=== PATIENT | male | born 1935 | race Caucasian/White ===

== ENCOUNTER 2017-05-21 09:14 | Emergency (ER) | payer MEDICARE, BC ==
[2017-05-21 11:04] VITALS: BP 150/78
[2017-05-21] MEDS ORDERED: HYDROmorphone 1 MG/ML Syringe IVPUSH ONE (11:09)
[2017-05-21] MEDS ORDERED: Ondansetron 4 MG/2 ML SDV IVPUSH ONE (11:09)
[2017-05-21 11:19] LABS: CHLORIDE,CL 110 mmol/L (98-107); SODIUM,NA 143 mmol/L (136-145)
--- NOTE | 2017-05-21 11:49 | EDM.PDOC ---
ED HPI GENERAL MEDICAL PROBLEM - General Chief Complaint: Lower Extremity Injury/Pain Stated Complaint: FALL Time Seen by Provider: 05/21/17 09:21 Source of Information: Reports: Patient - History of Present Illness INITIAL COMMENTS - FREE TEXT/NARRATIVE: Pt. fell, landing on his backside when he slipped on the ice. He denies striking his head. Denies any neck pain. Pt. states that his R hand was outstretched, and he fell on an outstretched R hand, injuring his R palm. Pt. was able to bear weight minimally in the R side. He denies any paresthesia to his upper or lower extremities. He states that he did not have any weakness, chest pain, or palpitations prior to the fall, and states he fell as a result of slipping on the ice. Location: Reports: Lower Extremity, Right Improves with: Reports: Rest Worsens with: Reports: Movement Right Hip Pain Score (Numeric/FACES): 2 - Related Data Allergies Allergy/AdvReac Type Severity Reaction Status Date / Time No Known Allergies Allergy Verified 05/21/17 09:41 Home Meds: Home Meds ALPRAZolam [Xanax] 0.25 mg PO BEDTIME PRN 05/25/15 [History] Aspirin [Halfprin] 81 mg PO DAILY 05/25/15 [History] Fluticasone Propionate [Flonase] 2 sprays NASBOTH DAILY 05/25/15 [History] Sodium Chloride [[place] Saline] 2 sprays NASBOTH ASDIRECTED 05/25/15 [History] Past Medical History HEENT History: Reports: Allergic Rhinitis, Sinusitis, Other (See Below) Other HEENT History: deviated septum, hypertrophy bilat inferior nasal turbinates Cardiovascular History: Reports: High Cholesterol Respiratory History: Reports: None Gastrointestinal History: Reports: Cholelithiasis, Diverticulosis, GERD Genitourinary History: Reports: Prostate Disorder Musculoskeletal History: Reports: None Neurological History: Reports: None Hematologic History: Reports: None Immunologic History: Reports: None Oncologic (Cancer) History: Reports: None Dermatologic History: Reports: None - Past Surgical History Head Surgeries/Procedures: Reports: None HEENT Surgical History: Reports: Naso-Sinus Surgery Respiratory Surgical History: Reports: None GI Surgical History: Reports: Cholecystectomy Neurological Surgical History: Reports: Laminectomy, Other (See Below) Musculoskeletal Surgical History: Reports: None Oncologic Surgical History: Reports: None Dermatological Surgical History: Reports: None Social & Family History - Tobacco Use Smoking Status *Q: Never Smoker Years of Tobacco use: 20 Used Tobacco, but Quit: Yes Second Hand Smoke Exposure: No - Alcohol Use Days Per Week of Alcohol Use: 7 Number of Drinks Per Day: 1 Total Drinks Per Week: 7 - Recreational Drug Use Recreational Drug Use: No Drug Use in Last 12 Months: No Review of Systems - Review of Systems Review Of Systems: See Below Constitutional: Reports: No Symptoms Eyes: Reports: No Symptoms Ears: Reports: No Symptoms Nose: Reports: No Symptoms Mouth/Throat: Reports: No Symptoms Respiratory: Reports: No Symptoms Cardiovascular: Reports: No Symptoms GI/Abdominal: Reports: No Symptoms Genitourinary: Reports: No Symptoms Musculoskeletal: Reports: Leg Pain (R hip pain) Skin: Reports: No Symptoms Neurological: Reports: No Symptoms Psychiatric: Reports: No Symptoms ED EXAM, GENERAL - Physical Exam Exam: See Below Exam Limited By: No Limitations General Appearance: Alert, WD/WN, No Apparent Distress Ears: Normal External Exam, Normal Canal, Hearing Grossly Normal, Normal TMs Nose: Normal Inspection, Normal Mucosa, No Blood Throat/Mouth: Normal Inspection, Normal Lips, Normal Teeth, Normal Gums, Normal Oropharynx, Normal Voice, No Airway Compromise Head: Atraumatic, Normocephalic Neck: Normal Inspection, Supple, Non-Tender, Full Range of Motion Respiratory/Chest: No Respiratory Distress, Lungs Clear, Normal Breath Sounds, No Accessory Muscle Use, Chest Non-Tender Cardiovascular: Normal Peripheral Pulses, Regular Rate, Rhythm, No Edema, No Gallop, No JVD, No Murmur, No Rub Peripheral Pulses: 4+: Radial (L), Radial (R) GI/Abdominal: Normal Bowel Sounds, Soft, Non-Tender, No Organomegaly, No Distention, No Abnormal Bruit, No Mass (Male) Exam: Deferred Rectal (Males) Exam: Deferred Back Exam: Normal Inspection, Full Range of Motion, NT Extremities: Normal Inspection, No Pedal Edema, Limited Range of Motion Neurological: Alert, Oriented, CN II-XII Intact, Normal Cognition, Normal Gait, Normal Reflexes, No Motor/Sensory Deficits Psychiatric: Normal Affect, Normal Mood Skin Exam: Warm, Dry, Intact, Normal Color, No Rash Lymphatic: No Adenopathy Course - Vital Signs Last Recorded V/S: Last Vital Signs Temp 35.7 C 05/21/17 09:15 Pulse 52 L 05/21/17 10:45 Resp 16 05/21/17 09:15 BP 150/78 H 05/21/17 10:45 Pulse Ox - Orders/Labs/Meds Orders: Active Orders 24 hr Category Date Time Status Hand Comp Min 3V Rt [CR] Stat Exams 05/21/17 09:19 Taken Hip Min 2V or 3V w Pelvis Rt [CR] Stat Exams 05/21/17 09:18 Taken Labs: Laboratory Tests 05/21/17 05/21/17 05/21/17 Range/Units 10:51 10:51 10:51 WBC 9.1 (4.0-10.0) x10^3/uL RBC 4.77 (4.5-6.0) x10^6/uL Hgb 14.9 (14.0-18.0) g/dL Hct 42.9 (40.0-52.0) % MCV 89.9 (78.0-93.0) fL MCH 31.2 (26.0-32.0) pg MCHC 34.7 (32.0-36.0) g/dL RDW Coeff of Raad 14.3 (10.0-15.0) % Plt Count 237 (130-400) x10^3/uL Neut % (Auto) 64.1 (50.0-80.0) % Lymph % (Auto) 18.0 L (25.0-50.0) % [place] % (Auto) 11.5 H (2.0-11.0) % Eos % (Auto) 5.7 H (0.0-4.0) % Baso % (Auto) 0.7 (0.2-1.2) % PT 10.0 (9.8-11.8) SEC INR 0.9 L (2.0-3.5) Sodium 143 (136-145) mmol/L Potassium 4.3 (3.5-5.1) mmol/L Chloride 110 H (98-107) mmol/L Carbon Dioxide 24 (21-32) mmol/L Anion Gap 13.3 BUN 16 (7-18) mg/dL Creatinine 1.1 (0.70-1.30) mg/dL Est Cr Clr Drug Dosing 54.87 mL/min Estimated GFR (MDRD) > 60 Glucose 90 (74-106) mg/dL Calcium 8.9 (8.5-10.1) mg/dL Corrected Calcium 9.38 (8.5-10.1) mg/dL Total Bilirubin 0.5 (0.2-1.0) mg/dL AST 30 (15-37) U/L ALT 35 (16-63) U/L Alkaline Phosphatase 72 (46-116) U/L Total Protein 6.9 (6.4-8.2) g/dL Albumin 3.4 (3.4-5.0) g/dL Globulin 3.5 Albumin/Globulin Ratio 0.97 Meds: Medications Discontinued Medications Generic Name Dose Route Start Last Admin Trade Name Freq PRN Reason Stop Dose Admin Hydromorphone HCl 1 mg 05/21/17 11:09 05/21/17 11:15 Dilaudid IVPUSH 05/21/17 11:10 1 mg ONETIME ONE Administration Ondansetron HCl 4 mg 05/21/17 11:09 05/21/17 11:14 Zofran IVPUSH 05/21/17 11:10 4 mg ONETIME ONE Administration - Radiology Interpretation Free Text/Narrative:: Pelvis/R hip radiographs reveal R femoral neck fracture. R hand x-ray in negative Departure - Departure Time of Disposition: 11:53 Disposition: DC/Tfer to [facility] 02 Clinical Impression: Fracture of neck of femur, hip - Discharge Information Referrals: Jameson Cotto MD [Primary Care Provider] - Forms: ED Department Discharge, Interfacility Transfer EMTALA - My Orders Last 24 Hours: My Active Orders 05/21/17 09:18 Hip Min 2V or 3V w Pelvis Rt [CR] Stat 05/21/17 09:19 Hand Comp Min 3V Rt [CR] Stat - Assessment/Plan Last 24 Hours: My Active Orders 05/21/17 09:18 Hip Min 2V or 3V w Pelvis Rt [CR] Stat 05/21/17 09:19 Hand Comp Min 3V Rt [CR] Stat
== END 2017-05-21 12:05 | disposition short-term general hospital (02) ==
LOC: VM.ED 09:14
DX: S72.001A Fracture of unspecified part of neck of right femur, initial encounter for closed fracture (principal); Z79.899 Other long term (current) drug therapy; Z79.82 Long term (current) use of aspirin; W00.0XXA Fall on same level due to ice and snow, initial encounter
CPT/HCPCS: 36415; 73130; 73502; 80053; 85025; 85610; 96374; 96375; 99285; J1170; J2405

== ENCOUNTER 2017-05-25 10:07 | Inpatient (IN) | payer MEDICARE, BC ==
[2017-05-25] MEDS ORDERED: Loratadine 10 MG Tab PO PRN (13:11)
[2017-05-25] MEDS ORDERED: Sodium Chloride 0.65% Nasal Spray 45 ML Bottle NASBOTH PRN (13:11)
[2017-05-25] MEDS ORDERED: Bisacodyl 10 MG Supp RECTAL PRN (13:11)
[2017-05-25] MEDS ORDERED: Bisacodyl 5 MG Tab PO PRN (13:11)
[2017-05-25] MEDS: Acetaminophen 325 MG Tab PO PRN ×2 (14:16→23:31)
--- NOTE | 2017-05-26 02:03 | HP ---
HISTORY OF PRESENT ILLNESS: The patient is an 82-year-old admitted today for further therapies after a right hip fracture related to a mechanical fall repaired by Dr. Yang on 05/22/2017, with a right hip hemiarthroplasty. The patient states his pain is under pretty good control. He is having some problems with his bowels. He feels constipated, yet he is having about 3 loose stools watery per day. He otherwise has not had any chest pain. No trouble breathing. He did have some postop bradycardia. Heart rates were down to the 30s. He actually got some [place]. This was following his procedure. He remained in sinus tracie throughout his stay without further symptoms and was asymptomatic, so no further treatment recommended. He was weightbearing as tolerated. He has been on Lovenox for DVT prophylaxis. He had some postop ileus that improved with ambulation and a clear liquid diet. ALLERGIES: Include seasonal allergies, no medications. MEDICATIONS: 1. Dulcolax suppository 2 times a day as needed for constipation. 2. Lovenox 40 mg daily until June 24. 3. Hydrocodone 1 tablet every 4 hours as needed for pain. 4. Xanax 0.5 mg at bedtime as needed for anxiety. 5. Flonase. 6. Zyrtec. 7. Aspirin 81 mg daily. 8. [place] spray. Augmentin was prescribed back in February and March for sinusitis, and he has not been on any antihypertensives. 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 PAST SURGICAL HISTORY: The patient had a right hip surgery as listed above. He has also had endoscopy procedures, septoplasty with submucous resection back in 2012, cholecystectomy in 1975, back surgery in 2004, and cataract surgery. SOCIAL HISTORY: He is . He is a retired banker. He lives at home with his . He has 3 children. FAMILY HISTORY: Mother of ovarian cancer. She was 92. Father . He also was elderly at 93. Sister, who had colon cancer, at 63. REVIEW OF SYSTEMS: General: There have been no weight changes. HEENT: No sore throat. Cardiac: No chest pain. No palpitations. Respiratory: No cough. No shortness of breath. Abdomen: No current nausea, vomiting, or abdominal pain. Otherwise, see HPI. : He has had no dysuria or problems urinating. Musculoskeletal: He has had some hip discomfort with riding out here in the vehicle. Otherwise, his pain is under good control. Psychiatric: He is not confused or anxious. Otherwise, all systems reviewed and found to be negative unless otherwise stated. PHYSICAL EXAMINATION: Vital Signs: Weight 87.4 kg, temperature 98.3, pulse 54, blood pressure 145/79, respiratory rate 12, O2 of 96 on room air. General: He is in no acute distress. Heart: Regular rate and rhythm. S1, S2 without murmur. LUNGS: Sounds are clear to auscultation bilaterally without crackles or wheezes. Abdomen: Positive bowel sounds. Soft and nontender. Extremities: Warm and dry. No edema. Hip incision not examined today. Legs are nontender, nonswollen. Homans sign negative. Mental Status: Alert and orientated x3. ASSESSMENT AND PLAN: 1. Status post mechanical fall, slipping on the ice, breaking his right hip, status post right hip hemiarthroplasty early in the morning of 05/22, seems to be doing well postop. We will get him up and moving with therapies. 2. Deep venous thrombosis prophylaxis. We will continue Lovenox. 3. Ileus, seems to be resolving. The patient is tolerating diet currently. We will advance and adjust as needed. He is actually getting some spaghetti now. 4. Sinus bradycardia. If any symptoms of dizziness, we will get an EKG or place him on short-term telemetry. PLAN: The patient is a code level 1. He will have PT and OT on swing bed. We will order support stockings and do Lovenox for DVT prophylaxis. Anticipate discharge home when stable. Dr. Jameson Cotto to follow the patient. Staple removal around June 05. He may already be home by then. CBC again in 3 days due to Lovenox monitoring. MKA: 05/25/2017 16:41:43 MODL: 05/25/2017 23:19:02 /[id number]
[2017-05-26] MEDS ORDERED: Fluticasone Propionate Nasal Spray 16 GM Bottle NASBOTH SCH (08:00)
[2017-05-26] MEDS: Acetaminophen 325 MG Tab PO PRN (08:21)
[2017-05-26] MEDS: Aspirin 81 MG Tab.EC PO SCH (08:22)
[2017-05-26] MEDS: Enoxaparin 40 MG/0.4 ML Syringe SUBCUT SCH (08:22)
[2017-05-26] MEDS: Acetaminophen/HYDROcodone 325-5 MG Tab PO PRN ×2 (10:31→18:28)
[2017-05-26] MEDS: Fluticasone Propionate Nasal Spray 16 GM Bottle NASBOTH SCH ×2 (18:28→18:59)
[2017-05-26] MEDS: ALPRAZolam 0.25 MG Tab PO PRN (21:06)
[2017-05-27] MEDS: Acetaminophen 325 MG Tab PO PRN ×3 (02:05→18:56)
[2017-05-27] MEDS: Enoxaparin 40 MG/0.4 ML Syringe SUBCUT SCH (08:47)
[2017-05-27] MEDS: Aspirin 81 MG Tab.EC PO SCH (08:48)
[2017-05-27] MEDS: ALPRAZolam 0.25 MG Tab PO PRN (21:18)
[2017-05-27] MEDS: Fluticasone Propionate Nasal Spray 16 GM Bottle NASBOTH SCH (21:18)
[2017-05-27] MEDS: Acetaminophen/HYDROcodone 325-5 MG Tab PO PRN (21:19)
[2017-05-28] MEDS: Aspirin 81 MG Tab.EC PO SCH (07:38)
[2017-05-28] MEDS: Acetaminophen 325 MG Tab PO PRN (07:38)
[2017-05-28] MEDS: Enoxaparin 40 MG/0.4 ML Syringe SUBCUT SCH (07:40)
[2017-05-28] MEDS ORDERED: traZODone 50 MG Tab PO SCH (20:00)
[2017-05-28] MEDS: Fluticasone Propionate Nasal Spray 16 GM Bottle NASBOTH SCH (21:33)
[2017-05-29] MEDS: Aspirin 81 MG Tab.EC PO SCH (07:45)
[2017-05-29] MEDS: Enoxaparin 40 MG/0.4 ML Syringe SUBCUT SCH (07:46)
[2017-05-29] MEDS: Acetaminophen 325 MG Tab PO PRN (10:35)
[2017-05-29 11:03] VITALS: BP 117/64
--- NOTE | 2017-05-30 07:57 | DISCH ---
PRIMARY DISCHARGE DIAGNOSES: 1. Right hip fracture from a mechanical fall status post right hip hemiarthroplasty on 05/22. 2. DVT prophylaxis. He has been on Lovenox. 3. Resolved ileus postop. He has had no trouble passing his stools here. 4. Insomnia chronic. He did not do well with trazodone. He will resume his regular Xanax on discharge, which he has used infrequently over the years. 5. Sinus bradycardia. He had no further symptoms here. REASON FOR ADMISSION: On the date of admission, this 82-year-old man was transferred to [facility] bed for further cares after his acute stay in [place]. He was up. He was working with therapies. He had blood pressure that was slightly elevated at times to 157/92, but then on discharge, he was 148/80. He is not on any antihypertensive. He took very few medications at home. PHYSICAL EXAMINATION: Vital Signs: Otherwise, his other vitals; temp 98, pulse 54, blood pressure 16, O2 is 94. General: He is in no acute distress. Heart: Regular rate and rhythm. Lungs: Sounds are clear to auscultation bilaterally without crackles or wheezes. Extremities: Warm and dry. He had some 1+ edema over the right calf area and even into the right posterior thigh. He had no edema on the left leg. Homans testing was negative. His incision was clean, intact with annabella. No drainage. Mental Status: He is alert and orientated x3. DISCHARGE PLANS AND INSTRUCTIONS: The patient will follow up in the clinic with Dr. Jameson Cotto in 1 to 2 weeks. He will also follow up with Orthopedics. He will have the annabella removed on 06/05, possibly by Home Health. He may continue Xanax for sleep. He may use Tylenol for pain. We discussed this. No script for narcotics provided. He did have 15 prescribed through [place], but he did not believe he still had that script. He should ice the hip if pain and he may continue senna to help with having bowel movements. Addendum to Home Health: The patient was seen [id number] on 05/29/2017. He requires home health due to a new hip fracture that required surgery. He requires nursing for medication monitoring while he is getting Lovenox to assess for any bleeding and OT and PT to work with him for therapies including gait and dressing. He is unable to leave his home without the assist of another person due to his recent fracture needing his walker for mobility. I will periodically review this plan of care. MKA: 05/29/2017 09:26:15 MODL: 05/30/2017 07:51:09 /[id number]
== END 2017-05-29 15:30 | disposition home health service (06) | DRG 948 ==
LOC: VM.MS 12:43
PROVIDERS: ADMIT Internal Medicine; ATTEND Internal Medicine
DX: R53.1 Weakness (principal); S72.001D Fracture of unspecified part of neck of right femur, subsequent encounter for closed fracture with routine healing; W00.0XXD Fall on same level due to ice and snow, subsequent encounter; K59.00 Constipation, unspecified; J30.2 Other seasonal allergic rhinitis; K21.9 Gastro-esophageal reflux disease without esophagitis; N40.0 Benign prostatic hyperplasia without lower urinary tract symptoms; E78.2 Mixed hyperlipidemia; D3A.8 Other benign neuroendocrine tumors; K57.90 Diverticulosis of intestine, part unspecified, without perforation or abscess without bleeding; R00.1 Bradycardia, unspecified; F51.04 Psychophysiologic insomnia; Z90.09 Acquired absence of other part of head and neck
CPT/HCPCS: 36415; 82962; 85025; 97110-GP; 97116-GP; 97161-GP; 97165-GO; 97535-GO; A9270-GY; J1650

== ENCOUNTER 2018-07-04 16:21 | Emergency (ER) | payer MEDICARE, BC ==
--- NOTE | 2018-07-04 16:38 | EDM.PDOC ---
ED HPI GENERAL MEDICAL PROBLEM - General Chief Complaint: General Stated Complaint: POSSIBLY DEHYDRATED Time Seen by Provider: 07/04/18 16:25 Source of Information: Reports: Patient History Limitations: Reports: No Limitations - History of Present Illness INITIAL COMMENTS - FREE TEXT/NARRATIVE: Patient comes into the emergency department with concerns of fatigue and possibly dehydrated. Patient and his presented after talking to a neighbor they felt he could be dehydrated and wanted to have him evaluated. Patient recently underwent eye surgery approximately 2 days ago. He has been constant communication with the surgeon and has been following his recommendations. However the states that today he has been more tired and fatigued and has not had as greate of an appetite. The patient states that he was able to eat food without difficulty however it is just not been as much as he normally does. He does drink water on occasion. He is not an avid water drinker for he does not like drinking water. He has had beef bullion broth, orange juice, coffee, and water today alone. He has noted that he is been more tired and fatigued today however he did state last night prior to bed at 10:30 PM he took Tylenol PM and a Zyrtec. He normally does not take a daily Zyrtec for it makes him sleepy but last night his allergies were acting up and he ended up taking a full tablet most the time he only takes a half a tablet as needed. Bowel movements and urinating are within his normal limits. He denies any vomiting, chest pain, shortness of breath, dizziness, lightheadedness, vision changes, headache, or lower extremity edema. Patient denies any other injuries or illnesses. Onset: Sudden, Gradual Improves with: Reports: None Worsens with: Reports: None Associated Symptoms: Reports: Loss of Appetite, Malaise, Nausea/Vomiting - Related Data Allergies Allergy/AdvReac Type Severity Reaction Status Date / Time No Known Allergies Allergy Verified 07/04/18 16:31 Home Meds: Home Meds ALPRAZolam [Xanax] 0.125 mg PO BEDTIME PRN 05/25/15 [History] Aspirin [Halfprin] 81 mg PO DAILY 05/25/15 [History] Fluticasone Propionate [Flonase] 2 sprays NASBOTH DAILY 05/25/15 [History] Sodium Chloride [[place] Saline] 2 sprays NASBOTH ASDIRECTED PRN 05/25/15 [History] Bisacodyl [Dulcolax] 5 mg PO BID PRN 05/25/17 [History] Bisacodyl [Dulcolax] 10 mg RC DAILY PRN 05/25/17 [History] Cetirizine [ZyrTEC] 5 mg PO BID 05/25/17 [History] Acetaminophen [Tylenol] 650 mg PO Q4H PRN #30 tablet 05/29/17 [Rx] Docusate Sodium/Sennosides [Senokot-S] 1 each PO DAILY #30 tablet 05/29/17 [Rx] Enoxaparin [Lovenox] 40 mg SUBCUT DAILY #25 syringe 05/29/17 [Rx] Alendronate Sodium 70 mg PO Q7D 07/04/18 [History] Past Medical History HEENT History: Reports: Allergic Rhinitis, Sinusitis, Other (See Below) Other HEENT History: deviated septum, hypertrophy bilat inferior nasal turbinates Cardiovascular History: Reports: High Cholesterol Respiratory History: Reports: None Gastrointestinal History: Reports: Cholelithiasis, Diverticulosis, GERD Genitourinary History: Reports: Prostate Disorder, Other (See Below) Other Genitourinary History: pancreatic neuroendocrine tumor Musculoskeletal History: Reports: None Neurological History: Reports: None Psychiatric History: Reports: Anxiety Hematologic History: Reports: None Immunologic History: Reports: None Oncologic (Cancer) History: Reports: None Dermatologic History: Reports: None - Past Surgical History Head Surgeries/Procedures: Reports: None HEENT Surgical History: Reports: Cataract Surgery, Naso-Sinus Surgery Respiratory Surgical History: Reports: None GI Surgical History: Reports: Cholecystectomy, Other (See Below) Other GI Surgeries/Procedures: upper endoscopy Neurological Surgical History: Reports: Laminectomy, Other (See Below) Musculoskeletal Surgical History: Reports: Other (See Below) Other Musculoskeletal Surgeries/Procedures:: back surgery: Disk repair Oncologic Surgical History: Reports: None Dermatological Surgical History: Reports: None Social & Family History - Family History Family Medical History: Noncontributory - Caffeine Use Caffeine Use: Reports: Coffee ED ROS GENERAL - Review of Systems Review Of Systems: ROS reveals no pertinent complaints other than HPI. Constitutional: Reports: Fatigue, Decreased Appetite HEENT: Reports: No Symptoms Respiratory: Reports: No Symptoms Cardiovascular: Reports: No Symptoms Endocrine: Reports: No Symptoms GI/Abdominal: Reports: No Symptoms Musculoskeletal: Reports: No Symptoms Skin: Reports: No Symptoms Neurological: Reports: No Symptoms Psychiatric: Reports: No Symptoms Hematologic/Lymphatic: Reports: No Symptoms Immunologic: Reports: No Symptoms ED EXAM, GENERAL - Physical Exam Exam: See Below Exam Limited By: No Limitations General Appearance: Alert, WD/WN, No Apparent Distress Eye Exam: Left Eye: Other (patch over left eye, good tear production in right eye ) Throat/Mouth: Normal Inspection, Normal Lips, Other (Mucous membranes moist and pink ) Neck: Normal Inspection, Supple, Non-Tender, Full Range of Motion Respiratory/Chest: No Respiratory Distress, Normal Breath Sounds, No Accessory Muscle Use, Chest Non-Tender Cardiovascular: Normal Peripheral Pulses, Regular Rate, Rhythm, No Edema Peripheral Pulses: 3+: Radial (L), Radial (R) GI/Abdominal: Normal Bowel Sounds, Soft, Non-Tender, No Organomegaly, No Distention, No Abnormal Bruit Extremities: Normal Inspection, Normal Range of Motion, Normal Capillary Refill Neurological: Alert, Oriented, Normal Cognition Psychiatric: Normal Affect, Normal Mood Skin Exam: Warm, Dry, Intact, Normal Color, No Rash Course - Vital Signs Last Recorded V/S: Last Vital Signs Temp 37.0 C 07/04/18 16:34 Pulse 56 L 07/04/18 16:34 Resp 16 07/04/18 16:34 BP 126/85 07/04/18 16:34 Pulse Ox 98 07/04/18 16:34 - Orders/Labs/Meds Meds: Medications Discontinued Medications Generic Name Dose Route Start Last Admin Trade Name [place] PRN Reason Stop Dose Admin Ondansetron HCl 2 packet 07/04/18 16:46 07/04/18 16:55 Take Home: Ondansetron Odt 4 Mg, 2 Tab Pack PO 07/04/18 16:47 2 packet ONETIME ONE Administration Departure - Departure Time of Disposition: 16:50 Disposition: Home, Self-Care 01 Condition: Good Clinical Impression: Fatigue Qualifiers: Fatigue type: other Qualified Code(s): R53.83 - Other fatigue - Discharge Information *PRESCRIPTION DRUG MONITORING PROGRAM REVIEWED*: Not Applicable *COPY OF PRESCRIPTION DRUG MONITORING REPORT IN PATIENT TAYLOR: Not Applicable Instructions: Ondansetron tablets, Fatigue Forms: ED Department Discharge Additional Instructions: 1. rest 2. increase your water intake. It is recommended that you drink 4 ounces roughly every hour. Since he do not simental regular water it is recommended to utilize Powerade, Gatorade, or flavored powder add-ons to water 3. Continue to follow all of the surgical instructions regarding her recent surgery 4. Can take a 1 Zofran tablet if feeling nauseated every 4-8 hours 5. If not feeling better by Thursday or Thursday follow-up with her primary care provider 6. Activity and diet as tolerated 7. Call with any questions or concerns 8. Your vitals were all within normal limits today. No signs of dehydration are noted - Problem List Review Problem List Initiated/Reviewed/Updated: Yes - Assessment/Plan Assessment:: 1. fatigue Plan: 1. Patient has not been drinking as much water for he does not like the flavor. 2. Education provided regarding increase water intake and alternative options as needed, surgical follow up, signs and symptoms to monitor and OTC medication administration 3. Patient advised not to take Tylenol PM tonight for he was more tired today. Also advised to decrease he Zyrtec dose if he normally only takes a 1/2 tab to stick with that. 4. All questions and concerns were addressed prior to discharge
[2018-07-04 16:42] VITALS: BP 126/85
[2018-07-04] MEDS ORDERED: Take Home: Ondansetron 4 MG Tab.DIS, 2 Tab Pack PO ONE (16:46)
== END 2018-07-04 16:55 | disposition home or self-care (01) ==
LOC: VM.ED 16:21
DX: R53.83 Other fatigue (principal); Z79.82 Long term (current) use of aspirin; Z79.899 Other long term (current) drug therapy; Z98.49 Cataract extraction status, unspecified eye; Z90.49 Acquired absence of other specified parts of digestive tract
CPT/HCPCS: 99283; A9270; 99284-GF

== ENCOUNTER 2023-01-21 15:47 | Observation (INO) | payer MEDICARE ==
[2023-01-21] MEDS ORDERED: Sodium Chloride 0.9% 10 ML Syringe FLUSH PRN (16:12)
[2023-01-21] MEDS ORDERED: Sodium Chloride 0.9% 1,000 ML IV SCH (16:15)
[2023-01-21 16:20] LABS: BASOPHILS ABSOLUTE AUTO 0.1 x10^3/uL (0.0-0.2); BASOPHILS PERCENT AUTO 0.6 % (0.2-1.2); EOSINOPHILS ABSOLUTE AUTO 0.4 x10^3/uL (0.0-0.5); HEMATOCRIT 38.8 % (40.0-52.0); HEMOGLOBIN 13.2 g/dL (14.0-18.0); IMMATURE GRAN ABSOLUTE AUTO 0.01 x10^3/uL (0.00-0.07); LYMPHOCYTES PERCENT AUTO 23.3 % (25.0-50.0); MEAN CORPUSCULAR VOLUME 88.2 fL (78.0-93.0); MONOCYTES ABSOLUTE AUTO 0.9 x10^3/uL (0.0-0.8); MONOCYTES PERCENT AUTO 10.5 % (2.0-11.0); NEUTROPHILS ABSOLUTE AUTO 5.3 x10^3/uL (1.8-7.7); NEUTROPHILS PERCENT AUTO 60.5 % (50.0-80.0); PLATELET COUNT,PLT 272 x10^3/uL (130-400); WHITE BLOOD CELL COUNT,WBC 8.7 x10^3/uL (4.0-10.0)
[2023-01-21 16:36] LABS: INR 0.9 (0.9-1.1); PROTHROMBIN TIME 9.7 SEC (9.5-12.2); PTT,PARTIAL THROMBOPLSTIN TIME 32.2 SEC (23.6-33.6)
[2023-01-21 16:48] LABS: A/G RATIO 1.03; ALANINE AMINOTRANSFERASE,ALT 35 U/L (16-63); ALBUMIN 3.4 g/dL (3.4-5.0); ALKALINE PHOSPHATASE 82 U/L (46-116); ASPARTATE AMNIOTRANSFERASE,AST 52 U/L (15-37); BILIRUBIN TOTAL 0.3 mg/dL (0.2-1.0); BLOOD UREA NITROGEN,BUN 20 mg/dL (7-18); C-REACTIVE PROTEIN 1.65 mg/dL (<=0.50); CALCIUM 9.2 mg/dL (8.5-10.1); CARBON DIOXIDE,CO2 27 mmol/L (21-32); CHLORIDE,CL 105 mmol/L (98-107); GLUCOSE RANDOM 103 mg/dL (70-99); MAGNESIUM 1.9 mg/dL (1.8-2.4); POTASSIUM,K 4.4 mmol/L (3.5-5.1); PROTEIN TOTAL,TP 6.7 g/dL (6.4-8.2); SODIUM,NA 142 mmol/L (136-145); TSH ULTRASENSITIVE 1.062 uIU/mL (0.358-3.74)
[2023-01-21 16:49] LABS: ANION GAP 14.4 mmol/L (5-15); ESTIMATED GFR 72 mL/min (>=60)
[2023-01-21 17:23] LABS: APPEARANCE,URINE CLEAR (CLEAR); BILIRUBIN,URINE NEGATIVE (NEGATIVE); COLOR,URINE YELLOW (YELLOW); GLUCOSE,URINE NEGATIVE (NEGATIVE); KETONES,URINE NEGATIVE (NEGATIVE); LEUKOCYTE ESTERASE,URINE NEGATIVE (NEGATIVE); NITRITE,URINE NEGATIVE (NEGATIVE); OCCULT BLOOD,URINE NEGATIVE (NEGATIVE); PROTEIN,URINE NEGATIVE (NEGATIVE); UROBILINOGEN,URINE 0.2 EU/dL (0.2)
[2023-01-21] MEDS ORDERED: Sodium Chloride 0.65% Nasal Spray 45 ML Bottle NASBOTH PRN (17:53)
[2023-01-21] MEDS ORDERED: Acetaminophen 325 MG Tab PO PRN (17:53)
[2023-01-21] MEDS ORDERED: ALPRAZolam 0.25 MG Tab PO PRN (17:53)
[2023-01-21] MEDS ORDERED: Non-Formulary Medication 1 Each (Cetirizine [Zyrtec] 10 MG Tablet) PO SCH (21:00)
[2023-01-21 22:07] VITALS: BP 166/88; PULSE 55
[2023-01-22] MEDS ORDERED: Sennosides 8.6 MG Tab PO SCH (09:00)
[2023-01-22] MEDS ORDERED: Non-Formulary Medication 1 Each (Fluticasone Propionate [Flonase] 16 GM Bottle) NASBOTH SCH (09:00)
== END 2023-01-21 22:33 | disposition short-term general hospital (02) ==
LOC: VM.ED 15:47 → VM.MS 17:31
PROVIDERS: ADMIT Physician Assistant; ATTEND Physician Assistant
DX: R00.1 Bradycardia, unspecified (principal); E78.00 Pure hypercholesterolemia, unspecified; F41.9 Anxiety disorder, unspecified; Z79.899 Other long term (current) drug therapy
CPT/HCPCS: 36415; 71045; 80053; 81003; 83735; 83880; 84443; 84484; 85025; 85610; 85730; 86140; 93005; 99285; G0378

== ENCOUNTER 2023-02-12 13:04 | Emergency (ER) | payer MEDICARE ==
[2023-02-12 13:47] LABS: BASOPHILS ABSOLUTE AUTO 0.1 x10^3/uL (0.0-0.2); BASOPHILS PERCENT AUTO 0.6 % (0.2-1.2); EOSINOPHILS ABSOLUTE AUTO 0.4 x10^3/uL (0.0-0.5); EOSINOPHILS PERCENT AUTO 4.4 % (0.0-4.0); HEMATOCRIT 39.9 % (40.0-52.0); HEMOGLOBIN 13.3 g/dL (14.0-18.0); IMMATURE GRAN ABSOLUTE AUTO 0.02 x10^3/uL (0.00-0.07); LYMPHOCYTES ABSOLUTE AUTO 1.9 x10^3/uL (1.0-4.8); LYMPHOCYTES PERCENT AUTO 19.6 % (25.0-50.0); MEAN CORPUSCULAR HEMOGLOBIN 29.8 pg (26.0-32.0); MEAN CORPUSCULAR HGB CONC 33.3 g/dL (32.0-36.0); MEAN CORPUSCULAR VOLUME 89.5 fL (78.0-93.0); MONOCYTES ABSOLUTE AUTO 1.1 x10^3/uL (0.0-0.8); NEUTROPHILS ABSOLUTE AUTO 6.2 x10^3/uL (1.8-7.7); NEUTROPHILS PERCENT AUTO 64.2 % (50.0-80.0); PLATELET COUNT,PLT 294 x10^3/uL (130-400); RED BLOOD CELL COUNT 4.46 x10^6/uL (4.5-6.0); WHITE BLOOD CELL COUNT,WBC 9.7 x10^3/uL (4.0-10.0)
[2023-02-12 14:21] LABS: A/G RATIO 0.97; ALANINE AMINOTRANSFERASE,ALT 29 U/L (16-63); ALBUMIN 3.4 g/dL (3.4-5.0); ALKALINE PHOSPHATASE 96 U/L (46-116); ASPARTATE AMNIOTRANSFERASE,AST 27 U/L (15-37); BILIRUBIN TOTAL 0.4 mg/dL (0.2-1.0); BLOOD UREA NITROGEN,BUN 18 mg/dL (7-18); CALCIUM 8.7 mg/dL (8.5-10.1); CARBON DIOXIDE,CO2 25 mmol/L (21-32); CHLORIDE,CL 105 mmol/L (98-107); GLUCOSE RANDOM 92 mg/dL (70-99); POTASSIUM,K 4.4 mmol/L (3.5-5.1); PROTEIN TOTAL,TP 6.9 g/dL (6.4-8.2); SODIUM,NA 140 mmol/L (136-145)
[2023-02-12 14:22] LABS: ANION GAP 14.4 mmol/L (5-15); ESTIMATED GFR 72 mL/min (>=60)
[2023-02-12 16:58] VITALS: BP 158/83; PULSE 50
== END 2023-02-12 14:54 | disposition home or self-care (01) ==
LOC: VM.ED 13:04
DX: R00.1 Bradycardia, unspecified (principal)
CPT/HCPCS: 36415; 80053; 84484; 85025; 93005; 99284

== ENCOUNTER 2023-02-13 17:00 | Emergency (ER) | payer MEDICARE ==
[2023-02-13 17:47] LABS: BASOPHILS ABSOLUTE AUTO 0.1 x10^3/uL (0.0-0.2); BASOPHILS PERCENT AUTO 0.6 % (0.2-1.2); EOSINOPHILS ABSOLUTE AUTO 0.6 x10^3/uL (0.0-0.5); EOSINOPHILS PERCENT AUTO 6.1 % (0.0-4.0); HEMATOCRIT 40.6 % (40.0-52.0); HEMOGLOBIN 13.5 g/dL (14.0-18.0); IMMATURE GRAN ABSOLUTE AUTO 0.02 x10^3/uL (0.00-0.07); LYMPHOCYTES PERCENT AUTO 20.9 % (25.0-50.0); MEAN CORPUSCULAR HEMOGLOBIN 29.8 pg (26.0-32.0); MEAN CORPUSCULAR HGB CONC 33.3 g/dL (32.0-36.0); MEAN CORPUSCULAR VOLUME 89.6 fL (78.0-93.0); MONOCYTES ABSOLUTE AUTO 1.1 x10^3/uL (0.0-0.8); MONOCYTES PERCENT AUTO 11.5 % (2.0-11.0); NEUTROPHILS ABSOLUTE AUTO 5.8 x10^3/uL (1.8-7.7); NEUTROPHILS PERCENT AUTO 60.7 % (50.0-80.0); PLATELET COUNT,PLT 291 x10^3/uL (130-400); RED BLOOD CELL COUNT 4.53 x10^6/uL (4.5-6.0); WHITE BLOOD CELL COUNT,WBC 9.5 x10^3/uL (4.0-10.0)
[2023-02-13 17:47] LABS: APPEARANCE,URINE CLEAR (CLEAR); BILIRUBIN,URINE NEGATIVE (NEGATIVE); COLOR,URINE YELLOW (YELLOW); GLUCOSE,URINE NEGATIVE (NEGATIVE); KETONES,URINE NEGATIVE (NEGATIVE); LEUKOCYTE ESTERASE,URINE NEGATIVE (NEGATIVE); NITRITE,URINE NEGATIVE (NEGATIVE); OCCULT BLOOD,URINE TRACE-INTACT (NEGATIVE); PROTEIN,URINE NEGATIVE (NEGATIVE); UROBILINOGEN,URINE 0.2 EU/dL (0.2)
[2023-02-13 17:48] LABS: BACTERIA,URINE NOT SEEN /HPF (NOT SEEN); MUCUS,URINE NOT SEEN /LPF (NOT SEEN); RBC,URINE 0-5 /HPF (NOT SEEN); SQUAMOUS EPITHELIAL CELLS,UR NOT SEEN /HPF (NOT SEEN); WBC,URINE 0-5 /HPF (NOT SEEN)
[2023-02-13 18:05] LABS: A/G RATIO 1.03; ALANINE AMINOTRANSFERASE,ALT 30 U/L (16-63); ALBUMIN 3.6 g/dL (3.4-5.0); ALKALINE PHOSPHATASE 88 U/L (46-116); ASPARTATE AMNIOTRANSFERASE,AST 22 U/L (15-37); BILIRUBIN TOTAL 0.3 mg/dL (0.2-1.0); BLOOD UREA NITROGEN,BUN 21 mg/dL (7-18); CALCIUM 8.9 mg/dL (8.5-10.1); CARBON DIOXIDE,CO2 25 mmol/L (21-32); CHLORIDE,CL 106 mmol/L (98-107); CREATININE 1.1 mg/dL (0.70-1.30); GLUCOSE RANDOM 91 mg/dL (70-99); POTASSIUM,K 3.9 mmol/L (3.5-5.1); PROTEIN TOTAL,TP 7.1 g/dL (6.4-8.2); SODIUM,NA 143 mmol/L (136-145)
[2023-02-13 18:06] LABS: ANION GAP 15.9 mmol/L (5-15); ESTIMATED GFR 64 mL/min (>=60)
[2023-02-13 19:11] VITALS: BP 141/84; PULSE 56
== END 2023-02-13 20:00 | disposition home or self-care (01) ==
LOC: VM.ED 17:00
DX: R53.1 Weakness (principal)
CPT/HCPCS: 36415; 70450; 80053; 81001; 84484; 85025; 99284